=== PATIENT | male | born 1945 | race Caucasian/White ===

== ENCOUNTER 2019-06-10 13:06 | Outpatient (CLI) | payer MEDICARE, MEDICAID, SELFPAY ==
[2019-06-10 13:49] LABS: Eosinophils # 0.1 10^3/uL (0.0-0.8); Eosinophils % 5.9 %; Lymphocytes # 0.3 10^3/uL (0.8-4.8); Lymphocytes % 12.8 %; Mean Corpuscular HGB Conc 34.3 g/dL (30.0-36.0); Mean Corpuscular Hemoglobin 33.7 pg (28.0-34.0); Mean Corpuscular Volume 98.3 fL (80-94); Mean Platelet Volume 10.6 fL (7.4-10.4); Monocytes # 0.2 10^3/uL (0.2-0.9); Monocytes % 9.4 %; Neutrophils # 1.4 10^3/uL (1.8-7.7); Neutrophils % 70.4 %; Nucleated Red Blood Cells % 0 %; Platelet Count 65 10^3/cmm (130-400); Red Blood Count 1.75 10^6/uL (4.1-5.3); Red Cell Distribution Width 16.2 % (12.1-15.1)
[2019-06-10 14:23] LABS: Hematocrit 17.2 % (42.0-52.0); Hemoglobin 5.9 g/dL (11.7-16.6)
--- NOTE | 2019-06-10 17:14 | ONC CON_ITS ---
Dr. Clinton New Patient Note Patient: Juan J Charles Unit #: [id number]: [id number] Dicatated By: Kacie Clinton M.D.Date of Visit: Jun 10, 2019 Onc MED New Patient/Consult Referring Physician: Dr. José Miguel Louis History of Present Illness: Mr. Juan J Charles, is a 74-year-old gentleman acute promyelocytic leukemia diagnosed in 2009 status post chemotherapy, was in remission, being followed by primary care physician, as per patient his daughter patient was in his usual health until December 2018 when he was diagnosed with severe anemia, hemoglobin was around 7 g and he was given blood transfusion and that time nephrology took over his anemia management, since then patient has received multiple iron infusions and also being treated with and erythropoiesis stimulating agent also received multiple blood transfusions since then last one was in the mid May 2019 As per daughter, patient underwent EGD and colonoscopy in April 2019 which shows normal colonoscopy evaluation but peptic ulcer disease per EGD Patient has chronic systolic heart failure with pulmonary hypertension, is on Coumadin for history of MVR, Chronic renal disease due to hypertensive nephrosclerosis as well as chronic cardiorenal syndrome from chronic systolic heart failure Hypertension. Today patient is complaining of generalized weakness and fatigue, no melena or hematochezia, no jaundice, no hemoptysis or hematemesis, no petechiae or ecchymosis. No recent fever, no peripheral lymphadenopathy, no abdominal fullness, no nosebleed or gum bleed . Past Medical History: Mr. Charles's medical history consists of atrial fibrillation, chronic kidney disease (STAGE IV), chronic systolic heart failure, congestive heart failure, gastroesophageal reflux disease, gout, history of leukemia, hypertension, pancytopenia, and pulmonary hypertension. Past Surgical History: Mr. Charles's surgical/procedural history consists of cardiac defibrillator, hernia repair, mitral valve replacement, and tonsillectomy. Medications: Allopurinol 1 Tablet (of 100 mg) Oral daily, Amiodarone HCl 1 Tablet (of 100 mg) Oral daily, Bumex 1 Tablet (of 1 mg) Oral q 2 days, hydrALAZINE HCl 1 Tablet (of 25 mg) Oral daily, Metoprolol Tartrate 1 Tablet (of 25 mg) Oral b.i.d., Protonix 1 Tablet (of 20 mg) Tablet, enteric coated Oral b.i.d. Allergies: Codeine Sulfate, Gabapentin, levETIRAcetam, and predniSONE. Social History: Mr. Charles is and he is retired. Mr. Charles no longer smokes. He has no history of drinking. Family History: Mr. Charles's mother at age 93: colon cancer. Mr. Charles's father at age 53: stomach cancer. Mr. Charles has 1 sister who is : pancreatic cancer. Review Of Symptoms: Constitutional - Appetite is fair and weight has decreased. No fever, chills, hot flashes, or night sweats. Energy level is poor, ENMT - Positive for sinus congestion/drainage. No mouth sores. No sore throat or difficulty swallowing, Hematologic/Lymphatic - Positive for easy bruisng, frequent nosebleeds, Respiratory - Positive for shortness of breath. No cough. No pleuritic pain or hemoptysis, Cardiovascular - No angina pain. Occasional palpitations, Gastrointestinal - No nausea or vomiting. No heartburn or acid reflux. Flucuates between diarrhea and constipation. No blood in the stool or black stools, Genitourinary (M) - No dysuria or hematuria. No urinary frequency. No urgency or incontinence, Musculoskeletal - Positive for joint pain, Neurologic - No headache or dizziness. No numbness/paresthesias or other focal neurologic symptoms, Psychiatric - No anxiety or depression. Positive for insomnia. Vital Signs: Performed on Jun 10, 2019 14:38: 8, 23.27, 2.00 sq.m, 72.00 in, 100 %, 58 /min (LOW), 18 /min, 115/57 mm(hg), 97.3 F (LOW), and 171.6 lbs (HIGH). Performance Status: 2 - Ambulatory/capable of all self-care, unable to perform any work activities. Up and about more than 50% of waking hours. (ECOG) Physical Examination: ENMT - No oral exudates, ulcers, masses, thrush or mucositis. Oropharynx clear. Tongue normal, Respiratory - Lungs are clear to auscultation without rhonchi or wheezing, Cardiovascular - Regular rate and rhythm of heart, Abdomen - Non-tender, non-distended, Good bowel sounds. No guarding or rebound tenderness. No pulsatile masses, Extremities - 2+ edema bilaterally. Lab/Imaging: Most recent lab results are not available for this patient. Impression: Pancytopenia etiology unclear but could be due to APL relapse or considering his age, myelodysplasia or secondary AML due to chemotherapy in the past or aplastic anemia Status post multiple blood transfusions/iron infusions/erythropoiesis stimulating agent per nephrology History of APL diagnosed in 2009 status post chemotherapy, as per family patient achieved complete remission. History of MVR, on Coumadin History of chronic systolic heart failure History of chronic renal disease Plan: Discussed with patient regarding his labs white blood count 2 hemoglobin 5.9 hematocrit 17.2 platelets 65,000 absolute neutrophil count 1400 Clinically, patient is [id number] distress due to severe anemia, we will consider to units of packed RBCs, run each over 3 hours with Lasix 20 mg after first unit and watching for fluid overload. And also schedule him for bone marrow evaluation and consider flow cytometry/cytogenetics and FISH for MDS Patient will return to clinic 1 week after bone marrow procedure done for further discussion in the meantime we'll continue supportive care. Patient was advised in case he has any high-grade fever or gross bleeding he need to go to hospital immediately Signed By: Kacie Clinton M.D. <<Signature on File>>
== END 2019-06-10 13:07 | disposition home or self-care (01) ==
PROVIDERS: Family Provider Student in an Organized Health Care Education/Training Program; PCP Student in an Organized Health Care Education/Training Program; Referring Provider Internal Medicine; Visit Provider Internal Medicine Hematology & Oncology
DX: D61.818 Other pancytopenia (principal); N18.4 Chronic kidney disease, stage 4 (severe); D63.1 Anemia in chronic kidney disease; C92.41 Acute promyelocytic leukemia, in remission; I50.22 Chronic systolic (congestive) heart failure; Z79.01 Long term (current) use of anticoagulants
CPT/HCPCS: 85025; 99203

== ENCOUNTER 2019-07-04 09:31 | Day surgery (SDC) | payer MEDICARE, MEDICAID, SELFPAY ==
[2019-07-04 10:00] VITALS: BMI 23.0
[2019-07-04 11:07] LABS: INR 4.33 (0.8-1.2)
[2019-07-04 11:09] VITALS: BP 107/59; PULSE 51; RESP 18; TEMP 36.3; O2SAT 100
--- NOTE | 2019-07-04 11:17 | SUR.OPER ---
procedure cancelled by Dr. Clinton due to PT results.
[2019-07-04 11:39] LABS: Basophils % 1.3 %; Eosinophils # 0.1 10^3/uL (0.0-0.8); Eosinophils % 6.5 %; Lymphocytes # 0.2 10^3/uL (0.8-4.8); Mean Corpuscular HGB Conc 32.9 g/dL (30.0-36.0); Mean Corpuscular Hemoglobin 31.8 pg (28.0-34.0); Mean Corpuscular Volume 96.8 fL (80-94); Mean Platelet Volume 10.3 fL (7.4-10.4); Monocytes # 0.1 10^3/uL (0.2-0.9); Monocytes % 9.2 %; Neutrophils % 67.3 %; Nucleated Red Blood Cells % 0 %; Platelet Count 70 10^3/cmm (130-400); Red Blood Count 1.54 10^6/uL (4.1-5.3); Red Cell Distribution Width 18.2 % (12.1-15.1); White Blood Count 1.5 10^3/uL (4.0-10.0)
[2019-07-04 11:48] LABS: Hematocrit 14.9 % (42.0-52.0); Hemoglobin 4.9 g/dL (11.7-16.6)
--- NOTE | 2019-07-04 12:54 | SUR.PHASEII ---
CRITICAL LAB CRITICAL LAB WAS CALLED TO ME AT 1145 STATING HgB WAS 4.9, HCT 14.9. I CALLED DR OLSEN AND NOTIFIED HIM OF THE CRITICAL LAB, HE GAVE VERBAL TELEPHONE ORDERS TO ADMINISTER TWO UNITS OF PACKED RED BLOOD CELLS WITH TYLENOL AND BENEDRYL ADMINISTERED PRIOR AND LASIX BETWEEN UNITS, I THEN NOTIFIED THREAD SEPARATOR PAMELA HAYNES RN AND SHE STATED I NEEDED OUTPATIENT IN A BED OR ADMIT ORDERS FROM DR OLSEN. WHEN I CALLED DR OLSEN BACK TO TELL HIM WHAT THREAD SEPARATOR SAID HE STATED THAT HE CAN'T DO ADMIT ORDERS FROM OVER HERE AND TO SEND THE PATIENT TO ER AND LET THEM DEAL WITH IT. I THEN TOOK THE PATIENT TO ER VIA W/C, PATIENT WAS A&OX4, SATURATION 96% ON ROOM AIR
== END 2019-07-04 12:05 ==
LOC: OR 09:40
PROVIDERS: Family Provider Student in an Organized Health Care Education/Training Program; PCP Student in an Organized Health Care Education/Training Program; Visit Provider Internal Medicine Hematology & Oncology
PROC: (CPT 38221; principal; 2019-07-04 11:00)
DX: Z53.8 Procedure and treatment not carried out for other reasons (principal)
CPT/HCPCS: 36415; 85025; 85610

== ENCOUNTER 2019-07-04 12:20 | Inpatient (IN) | payer MEDICARE, MEDICAID, SELFPAY ==
[2019-07-04] VITALS (39 sets, daily range): BP systolic 91–128; BP diastolic 58–84; PULSE 0–88; RESP 0–22; TEMP 33.8–36.1; O2SAT 94–100; BMI 21.7
--- NOTE | 2019-07-04 12:22 | W.ED.GENADLT ---
HPI - General Adult General: Chief complaint: General Medical Stated complaint: Low Hemoglobin Time Seen by Provider: 07/04/19 12:21 Source: patient Mode of arrival: ambulatory Limitations: no limitations History of Present Illness: HPI narrative: Juan J is a 74-year-old male with a history of PML and he gets chronically anemic from the leukemia. He states he last had a transfusion 3 weeks ago. Patient had labs done today that showed a hemoglobin of 4.2. He states his been feeling generally weak. He denies any bloating specifically no blood in his stools. Patient sent here by his oncologist. Onset (ago): day(s) Relieving factors: none Exacerbating factors: none Associated symptoms: Deny chest pain, dyspnea, headache(s), nausea, rash or vomiting Review of Systems Const: Denies: fever, chills, body aches or change in appetite Eyes: Denies: blurry vision or eye discomfort ENMT: Denies: throat pain or dental pain Card: Denies: chest pain Resp: Denies: shortness of breath GI: Denies: abdominal pain, nausea, vomiting or diarrhea : Denies: painful urination Musc: Denies: neck pain or back pain Skin/Breast: Denies: rash Neuro: Denies: headache Psych: Denies: depression Julien/Lymph: Denies: easy bruising All/Imm: Denies: hives PFSH ED PFSH: Family History Mother Colon cancer Father FH: stomach cancer Sister FH: pancreatic cancer Social History Smoking and tobacco status: former smoker Physical Exam Const: COMMON NORMALS: oriented x3 GENERAL APPEARANCE: ill appearing HENMT: COMMON NORMALS: normocephalic and head/scalp atraumatic HEAD & SCALP: normocephalic and atraumatic Eye: COMMON NORMALS: PERRL and EOMs intact bilaterally PUPIL: Yes PERRL Neck/C-Spine: COMMON NORMALS: full ROM and supple Chest: COMMONS NORMALS: inspection of chest normal and palpation of chest normal Resp: COMMON NORMALS: normal respiratory effort, no retractions, no use of accessory muscles and clear to auscultation bilaterally AUSCULTATION: clear to auscultation bilaterally Cardio: COMMON NORMALS: regular rate, regular rhythm and no murmurs RATE: regular rate RHYTHM: regular rhythm GI: COMMON NORMALS: normal to inspection, nondistended, normoactive bowel sounds, soft to palpation, non-tender and no masses PALPATION: Yes soft Extremity: COMMON NORMALS: normal to inspection and full ROM Neuro: COMMON NORMALS: oriented x3, moves all extremities and no focal motor deficits Psych: COMMON NORMALS: mental status grossly normal, thought process normal and cooperative THOUGHT PROCESS: normal thought process Skin: COMMON NORMALS: no rashes or lesions noted and no wounds NARRATIVE SKIN EXAM: very pale GENERAL SKIN EXAM: no rashes or lesions noted Course Vital Signs: Vital signs: Vital Signs Pulse Rate 67 07/04/19 12:20 Respiratory Rate 16 07/04/19 13:10 Blood Pressure 105/72 07/04/19 12:35 Pulse Oximetry 100 07/04/19 13:10 MDM - General Adult MDM Narrative: Medical decision making narrative: Patient presents here with anemia that is chronic in nature likely from his leukemia. He has no signs of bleeding at this time. I spoke to hospitalist and will admit for transfusions. Patient has been stable while in the ER. Lab Data: Labs: Lab Results 07/04/19 07/04/19 07/04/19 Range/Units 12:43 12:43 12:43 WBC 1.5 L (4.0-10.0) 10^3/ uL RBC 1.57 L (4.1-5.3) 10^6/u L Hgb 5.0 L* (11.7-16.6) g/dL Hct 15.4 L* (42.0-52.0) % MCV 98.1 H (80-94) fL MCH 31.8 (28.0-34.0) pg MCHC 32.5 (30.0-36.0) g/dL RDW 18.5 H (12.1-15.1) % Plt Count 64 L (130-400) 10^3/c mm MPV 9.3 (7.4-10.4) fL Neut % (Auto) 68.1 % Lymph % (Auto) 18.0 % Reynolds % (Auto) 7.3 % Eos % (Auto) 5.3 % Baso % (Auto) 1.3 % Neut # (Auto) 1.0 L (1.8-7.7) 10^3/u L Lymph # (Auto) 0.3 L (0.8-4.8) 10^3/u L Reynolds # (Auto) 0.1 L (0.2-0.9) 10^3/u L Eos # (Auto) 0.1 (0.0-0.8) 10^3/u L Baso # (Auto) 0.0 (0.0-0.1) 10^3/u L Nucleated RBC % (a uto) 0 % Nucleated RBCs # 0.0 /100WBC PT 44.60 H (10.5-13.3) SECO NDS INR 4.64 H (0.8-1.2) Sodium 131 L (136-145) mmol/L Potassium 4.1 (3.5-5.1) mmol/L Chloride 99 (98-107) mmol/L Carbon Dioxide 20 L (22-29) mmol/L Anion Gap 16.1 (5-19) BUN 67 H (8-23) mg/dL Creatinine 4.4 H (0.7-1.2) mg/dL Glucose 94 (65-115) mg/dL Calculated Osmolal ity 271 L (285-295) mOsm/k g Calcium 9.2 (8.5-10.5) mg/dL Crossmatch 07/04/19 Range/Units 12:43 WBC (4.0-10.0) 10^3/ uL RBC (4.1-5.3) 10^6/u L Hgb (11.7-16.6) g/dL Hct (42.0-52.0) % MCV (80-94) fL MCH (28.0-34.0) pg MCHC (30.0-36.0) g/dL RDW (12.1-15.1) % Plt Count (130-400) 10^3/c mm MPV (7.4-10.4) fL Neut % (Auto) % Lymph % (Auto) % Reynolds % (Auto) % Eos % (Auto) % Baso % (Auto) % Neut # (Auto) (1.8-7.7) 10^3/u L Lymph # (Auto) (0.8-4.8) 10^3/u L Reynolds # (Auto) (0.2-0.9) 10^3/u L Eos # (Auto) (0.0-0.8) 10^3/u L Baso # (Auto) (0.0-0.1) 10^3/u L Nucleated RBC % (a uto) % Nucleated RBCs # /100WBC PT (10.5-13.3) SECO NDS INR (0.8-1.2) Sodium (136-145) mmol/L Potassium (3.5-5.1) mmol/L Chloride (98-107) mmol/L Carbon Dioxide (22-29) mmol/L Anion Gap (5-19) BUN (8-23) mg/dL Creatinine (0.7-1.2) mg/dL Glucose (65-115) mg/dL Calculated Osmolal ity (285-295) mOsm/k g Calcium (8.5-10.5) mg/dL Crossmatch See Detail Discharge Plan Discharge Patient Disposition: Admitted As Inpatient Clinical Impression: Anemia Qualifiers: Anemia type: unspecified type Qualified Code(s): D64.9 - Anemia, unspecified Condition: Stable Referrals: Gómez Perales [Primary Care Provider] - Coding Level of Care Code ED Drafter (Cad) Electrical for g Fwd Exam Comprehensive
[2019-07-04 12:55] LABS: Basophils % 1.3 %; Eosinophils # 0.1 10^3/uL (0.0-0.8); Eosinophils % 5.3 %; Lymphocytes # 0.3 10^3/uL (0.8-4.8); Mean Corpuscular HGB Conc 32.5 g/dL (30.0-36.0); Mean Corpuscular Hemoglobin 31.8 pg (28.0-34.0); Mean Corpuscular Volume 98.1 fL (80-94); Mean Platelet Volume 9.3 fL (7.4-10.4); Monocytes # 0.1 10^3/uL (0.2-0.9); Monocytes % 7.3 %; Neutrophils % 68.1 %; Nucleated Red Blood Cells % 0 %; Platelet Count 64 10^3/cmm (130-400); Red Blood Count 1.57 10^6/uL (4.1-5.3); Red Cell Distribution Width 18.5 % (12.1-15.1); White Blood Count 1.5 10^3/uL (4.0-10.0)
[2019-07-04 13:10] LABS: Anion Gap 16.1 (5-19); Blood Urea Nitrogen 67 mg/dL (8-23); Calcium 9.2 mg/dL (8.5-10.5); Carbon Dioxide 20 mmol/L (22-29); Chloride 99 mmol/L (98-107); Glucose 94 mg/dL (65-115); Osmolality Calculated 271 mOsm/kg (285-295); Potassium 4.1 mmol/L (3.5-5.1); Sodium 131 mmol/L (136-145)
[2019-07-04] MEDS: morphine 4 mg/mL SDV 1 mL IVP (13:10)
[2019-07-04 13:13] LABS: INR 4.64 (0.8-1.2)
[2019-07-04 13:16] LABS: Hematocrit 15.4 % (42.0-52.0)
--- NOTE | 2019-07-04 16:17 | P.HP_ITS ---
Providers/Chief Complaint Admitting Physician: Wilber Bojorquez MD Primary Care Provider: Gómez Perales Chief Complaint: Low Hemoglobin History of Present Illness Juan J Charles is a 74 year old gentleman with past medical history of acute PML diagnosed in 2009 status post chemotherapy was in remission and was being followed by primary care physician when in December 2018 he had severe anemia with a hemoglobin around 7 and back pain PML was diagnosed again. Since then he has had multiple iron and blood transfusion. His other past medical history are atrial fibrillation, chronic systolic heart failure with pulmonary hypertension, metallic mitral valve for which he is on Coumadin, CKD stage IV due to hypertensive nephrosclerosis as well as chronic cardiorenal syndrome, GERD, gout who presents to the ER today complaining of generalized weakness and lethargy. He denied of having any nausea, vomiting, diarrhea, black tarry bowel movements, dizziness, fall, cough, fever less than 2 months, flulike symptoms, chills, bleeding from anywhere, weakness in any of his limbs. In ER he was found to have a hemoglobin of 5 along with a creatinine of 4.4 and pancytopenia so hospital service was asked for admission. Patient states he has had a colonoscopy and EGD in 2019 which showed normal colonoscopy and gastritis and EGD. On evaluation patient is tired looking, lethargic lying on bed answering all questions appropriately, AO x3 not in respiratory distress, protecting his airway with his heart rate ranging from 45-48 with occasional VPCs and a blood pressure of 122/60 mmHg. Review of Systems Const: Denies: fever, chills, body aches, change in appetite, malaise, night sweats, diaphoresis, change in sleep pattern, daytime sleepiness or snoring Eyes: Denies: change in vision, blurry vision, photophobia, eye discomfort or eye discharge ENMT: Denies: throat pain, enlarged tonsils, hoarseness, mouth pain, oral sores/lesions, dry mouth, tinnitus, nasal congestion or post nasal drip Card: Denies: chest pain, palpitations, irregular heart rhythm, edema, swelling of feet/ankles, lightheadedness, syncope, pre-syncope, shortness of breath on exertion, shortness of breath when lying down, leg pain with exertion or bluish discoloration of hands/feet Resp: Denies: shortness of breath, productive cough, non-productive cough, wheezing, stridor, pain on inspiration, change in phlegm color, coughing up blood or chest congestion GI: Denies: abdominal pain, nausea, vomiting, vomiting blood, coffee grounds in vomit, difficulty swallowing, heartburn/indigestion, diarrhea, constipation, bloating, cramping, change in bowel habits, painful bowel movements, blood in stool or black tarry stool : Denies: flank pain, difficulty urinating, painful urination, urinary frequency, urinary urgency, urinary hesitancy, urinary dribbling, difficulty starting urination, change in urine stream, nighttime urination or blood in urine Musc: Denies: neck pain, back pain, extremity pain, joint pain, joint swelling, redness, joint stiffness or limited range of motion Neuro: Reports: weakness in extremities; Denies: headache, numbness in extremities, changes in sensation, lack of coordination, difficulty walking, frequent falls, dizziness, vertigo, confusion, slurred speech, difficulty communicating thoughts or seizure-like activity Psych: Denies: anxiety, depression, mood swings, panic attacks, hopelessness or irritability Endo: Denies: excessive urination, excessive thirst, tired all the time, cold intolerance, excessive sweating, flushing or heat intolerance Julien/Lymph: Denies: easy bruising or easy bleeding All/Imm: Denies: tongue swelling, facial swelling or acute wheezing Medications/Allergies Home Medications Medication Instructions Recorded Confirmed Last Taken Type oxycodone See Rx Instructions .ROUTE .COMPLEX 07/04/19 07/04/19 Unknown History Allergies Allergy/AdvReac Type Severity Reaction Status Date / Time codeine Allergy Unknown Verified 07/04/19 10:06 gabapentin Allergy Unknown Verified 07/04/19 10:06 levetiracetam Allergy Unknown Verified 07/04/19 10:06 prednisone Allergy Unknown Verified 07/04/19 10:06 PFSH Acute PFSH: Medical History (Updated 07/04/19 @ 16:45 by Wilber Bojorquez MD) Atrial fibrillation Cardiac defibrillator in place Cardiorenal syndrome Chronic renal disease Gout Hypertensive nephrosclerosis Leukemia Normal colonoscopy Pancytopenia Peptic ulcer Pulmonary hypertension Systolic heart failure Surgical History (Updated 07/04/19 @ 16:21 by Wilber Bojorquez MD) H/O hernia repair History of esophagogastroduodenoscopy (EGD) History of tonsillectomy S/P MVR (mitral valve repair) Family History Mother Colon cancer Father FH: stomach cancer Sister FH: pancreatic cancer Social History (Updated 07/04/19 @ 16:22 by Wilber Bojorquez MD) Smoking and tobacco status: former smoker Household members: children Housing: House Vitals/I&O/Wt Last Vital Signs Temp 96.9 F L 07/04/19 15:07 Pulse 47 L 07/04/19 15:15 Resp 7 L 07/04/19 15:15 BP 118/66 07/04/19 15:15 Pulse Ox 99 07/04/19 15:15 07/04/19 07/04/19 07/04/19 06:59 14:59 22:59 Intake Total 0 / 0 Balance 0 / 0 Weight last 48 hrs Weight 72.575 kg Physical Exam Narrative: EXAM NARRATIVE: General: No acute distress, AO x3, Tired looking, lethargic, severe pallor, dehydrated HEENT: PERRLA, pupils bilaterally equal and reactive Chest: Normal vesicular breath sounds, no added sounds, equal good air entry bilaterally CVS: S1-S2 regular,, bradycardia, MitraClip present over the mitral valve, pansystolic murmur at the apex, S3 gallop, no rubs Abdomen: Soft, nontender, no organomegaly, bowel sounds present Neuro: No focal deficits, no facial deformity, AO x3, power 5/5 in all limbs Data : 07/04/19 12:43 07/04/19 12:43 A&P Assessment and plan (1) Pancytopenia: Status: Acute (2) Anemia: Status: Acute Qualifiers: Anemia type: unspecified type Qualified Code(s): D64.9 - Anemia, unspecified (3) S/P MVR (mitral valve repair): Status: Acute (4) Systolic heart failure: Status: Acute (5) Chronic renal disease: Status: Acute (6) Atrial fibrillation: Status: Acute (7) Supratherapeutic INR: Status: Acute (8) Bradycardia: Status: Acute Additional A&P Information Severe anemia: Most likely baseline hemoglobin around 7. Secondary to PML along with anemia due to renal dysfunction. Cannot rule out slow GI bleed. 2 units transfusion PRBC. Protonix 40 mg IV twice daily. Check iron panel, vitamin B12, folate, ferritin. Check stool for occult blood. If positive will consult surgery for EGD and colonoscopy. As per the records patient had EGD and colonoscopy earlier in April which were both normal. CKD: We do not have a baseline creatinine for the patient. Last creatinine in the system is around one-point 8?2 but that was more than 5 years ago. Check urine lites, urine creatinine, CT abdomen pelvis without contrast to rule out obstructive uropathy, renal ultrasound. Patient is looking dehydrated right now we will hold off on Bumex for now. Metallic mitral valve/supratherapeutic INR: Given severe anemia will hold off on warfarin for now. Goal INR is going to be around 3. If patient continues to have anemia and INR comes around 3 will have to start patient on heparin drip. Because patient is not having any acute bleeding right now will not reverse the INR as that can cause that mitral valve. Bradycardia: We will hold off on home dose of metoprolol and amiodarone for now as patient is having significant bradycardia. No hyperkalemia on the blood work. Start him on dopamine at 10 mcg/min. We will keep pacer pads at the bedside. We will consult cardiology for possible transvenous pacer. Atrial fibrillation: As above. Check TSH. History of severe systolic dysfunction: No recent echo in the system. Patient on exam is severely dehydrated at present. We will hold off on further diuresis for now. Check echocardiogram. Cardiac diet. Supratherapeutic INR. CODE STATUS: Discussed in detail with the patient regarding the CODE STATUS he states for now he would like to be full code. Attestations Medical Necessity Statement*: Admit to ICU for more than 2 midnights for severe bradycardia, severe anemia, supratherapeutic INR. Time Spent in Patient Care: Greater than 35 minutes Coding Level of Care Code Acute Rubber Flap Tuber Machine Operator for Chg Fwd Diagnoses Pancytopenia D61.818 Anemia D64.9 Anemia type: unspecified type S/P MVR (mitral valve repair) Z98.890 Systolic heart failure I50.20 Chronic renal disease N18.9 Atrial fibrillation I48.91 Supratherapeutic INR R79.1 Bradycardia R00.1
[2019-07-04 16:24] LABS: NT Pro B Type Natriuretic Pept 2568 pg/mL (0-125)
--- NOTE | 2019-07-04 16:35 | CTR_ITS ---
PROCEDURE INFORMATION: Exam: CT Abdomen And Pelvis Without Contrast Exam date and time: 07/04/2019 5:00 PM Age: 74 years old Clinical indication: Abdominal pain; Generalized; Additional info: R/O urinary obstruction TECHNIQUE: Imaging protocol: Computed tomography of the abdomen and pelvis without contrast. Total DLP: 592.04 mGy-cm Radiation optimization: All CT scans at this facility use at least one of these dose optimization techniques: automated exposure control; mA and/or kV adjustment per patient size (includes targeted exams where dose is matched to clinical indication); or iterative reconstruction. COMPARISON: No relevant prior studies available. FINDINGS: Limitations: The absence of intravenous contrast lessens the sensitivity of this study for solid organ abnormalities. Lungs: There is some atelectasis at the lung bases. There is a small calcification at the left lung base consistent with old granulomatous disease. Heart: There is moderate cardiomegaly. There is calcification of the mitral valve. Liver: There is no focal abnormality within the liver. Gallbladder and bile ducts: Multiple calcified gallstones are present. Pancreas: Normal. No ductal dilation. Spleen: There is mild nonspecific splenomegaly. Adrenals: Normal. No mass. Kidneys and ureters: There is a 5 cm sized indeterminate cyst arising from the mid left kidney. This is not completely evaluated on this examination but this has some mural calcification of possible mural nodule. Recommend MR without and with contrast or CT without and with contrast. MR is preferred for masses under 1.5 cm. There are other smaller indeterminate renal masses, incompletely evaluated on this examination which may represent cysts. These can be evaluated along with the larger cyst. There are some small calcifications in the left kidney which may represent small nonobstructing stones. There is no evidence of hydronephrosis. There is no stone along the course of either ureter. Stomach and bowel: There is been partial colectomy. There is moderate nonspecific gaseous dilatation of the mid transverse colon of uncertain significance. There is no evidence of colitis/diverticulitis. There is no evidence of intestinal obstruction. Appendix: Not identified Intraperitoneal space: Unremarkable. No free air. No significant fluid collection. Vasculature: There is coronary artery calcification. The aorta demonstrates mild atherosclerotic calcification. Lymph nodes: Unremarkable. No enlarged lymph nodes. Bladder: Unremarkable as visualized. Reproductive: Unremarkable as visualized. Bones/joints: There is old healed fracture of the left inferior pubic ramus. The lumbar spine demonstrates moderate degenerative changes at multiple levels. Soft tissues: Unremarkable. CT/CT abdomen pelvis wo con [id number] IMPRESSION: 1. Old granulomatous disease 2. Cardiomegaly, coronary disease and calcified mitral valve 3. Cholelithiasis 4. Multiple indeterminate renal masses. Further evaluation with MRI or contrast-enhanced CT scan is suggested. 5. Moderate gaseous dilatation of the transverse colon. Radiation Dose CTDIVOL = (mGy): DLP = 592.04 (mGy-cm)
[2019-07-04 17:44] LABS: Potassium, Radom Urine 17 mmol/L; Urine Creatinine 69 mg/dL (39-259); Urine Random Chloride 54 mmol/L; Urine Random Sodium 71 mmol/L
[2019-07-04 17:45] LABS: Folate Level 10.1 ng/mL (4.5-32.2)
[2019-07-04 17:46] LABS: Ferritin 377 ng/mL (30-400); Iron 101 ug/dL (59-158); Percent Saturation 44.2 % (20-50); Total Iron Binding Capacity 228 mcg/dl; Unsaturated Iron Binding 127 ug/dL (112-347); Vitamin B12 1786 pg/mL (232-1245)
--- NOTE | 2019-07-04 18:36 | PC.NURSE ---
PATIENT CAME TO [facility] VIA STRETCHER WITH RETAIL MANAGER IN TRAINING ; PATIENT HAD BLOOD RUNNING AT 175ML/HR ; PATIENT HEART RATE FROM 33-40 ; DR NOTIFIED ; PATIENT BLADDER SCANNED WITH 200+ ML SHOWING ; URINE SAMPLE NEEDED BUT PATIENT WAS UNABLE TO URINATE SO STRAIGHT CATH WAS PERFORMED AND 700ML WAS REMOVED ; ORDERED PATIENT TO BE TRANSFERRED TO ICU D/T BRADYCARDIA ; REPORT CALLED ; PATIENT WAS TAKEN TO CT AND THEN TO ICU VIA STRETCHER WITH MONITOR ATTACHED
[2019-07-04] MEDS: pantoprazole 40 mg SDV IVP (18:53)
[2019-07-04] MEDS: DOPamine drip 400 MG/250 ML PREMIX 27.2 MG IV (18:54)
[2019-07-04] MEDS: sodium chloride 0.9% 100 ML (18:54)
[2019-07-04 19:00] LABS: Specific Gravity, Urine 1.005 (1.005-1.030); Urine Appearance Clear (CLEAR); Urine Color Yellow (Yellow); pH Urine 5 (5-7)
[2019-07-04 19:01] LABS: Bilirubin Urine Neg (NEGATIVE); Blood Urine Neg (Negative); Glucose Urine UA Norm (Normal); Ketones Urine Negative (Negative); Leukocyte Esterase Urine Negative (Negative); Nitrate Urine Negative (Negative); Protein Urine Neg (Negative); Urobilinogen Urine Norm (Negative)
[2019-07-04 19:03] LABS: Lactic Sepsis W/Reflex 0.9 mmol/L (0.5-2.2)
[2019-07-04 19:12] LABS: Anion Gap 18.1 (5-19); Blood Urea Nitrogen 77 mg/dL (8-23); Calcium 9.2 mg/dL (8.5-10.5); Carbon Dioxide 18 mmol/L (22-29); Chloride 100 mmol/L (98-107); Free T4 Free Thyroxine 0.81 ng/dL (0.82-1.77); Glucose 94 mg/dL (65-115); Osmolality Calculated 273 mOsm/kg (285-295); Potassium 4.1 mmol/L (3.5-5.1); Sodium 132 mmol/L (136-145); T3 Free 1.2 PG/ML (2.0-4.4)
[2019-07-04 19:13] LABS: Cortisol Random 8.62 mcg/dL (2.47-19.5)
[2019-07-04 19:30] LABS: Bacteria Urine TRACE; Squamous Epithelial Cell Urine 0-4 (0-5)
[2019-07-04 19:31] LABS: Add Urine Culture? No
[2019-07-04] MEDS: levothyroxine 100 mcg SDV 200 MCG IVP (20:37)
[2019-07-04] MEDS: vancomycin 1,000 MG in sodium chloride 0.9% 250 ML 250 MG IV (20:38)
[2019-07-04] MEDS: piperacillin-tazobactam 3.375 GM in sodium chloride 0.9% (plus) 50 ML IV (20:48)
[2019-07-05] VITALS (25 sets, daily range): BP systolic 89–131; BP diastolic 59–97; PULSE 47–88; RESP 2–20; TEMP 36.3–37; O2SAT 86–98; BMI 21.5
[2019-07-05 00:54] LABS: Hematocrit 25.9 % (42.0-52.0); Hemoglobin 8.7 g/dL (11.7-16.6)
[2019-07-05] MEDS: morphine IR 15 mg Tablet PO (01:14)
[2019-07-05 01:20] LABS: 25 Hydroxy Vitamin D > 100 ng/mL (30-100)
[2019-07-05 04:59] LABS: Hematocrit 24.3 % (42.0-52.0); Hemoglobin 8.2 g/dL (11.7-16.6); Lymphocytes # 0.2 10^3/uL (0.8-4.8); Lymphocytes % 4.8 %; Mean Corpuscular HGB Conc 33.7 g/dL (30.0-36.0); Mean Corpuscular Hemoglobin 30.1 pg (28.0-34.0); Mean Corpuscular Volume 89.3 fL (80-94); Mean Platelet Volume 9.4 fL (7.4-10.4); Monocytes % 0.6 %; Neutrophils # 3.1 10^3/uL (1.8-7.7); Neutrophils % 94.3 %; Nucleated Red Blood Cells % 0 %; Platelet Count 77 10^3/cmm (130-400); Red Blood Count 2.72 10^6/uL (4.1-5.3); Red Cell Distribution Width 22.4 % (12.1-15.1); White Blood Count 3.3 10^3/uL (4.0-10.0)
[2019-07-05 05:18] LABS: Alanine Aminotransferase 26 U/L (0-41); Albumin Level 3.6 g/dL (3.5-5.2); Alkaline Phosphatase 140 IU/L (40-130); Anion Gap 20.2 (5-19); Aspartate Amino Transferase 66 U/L (0-40); Blood Urea Nitrogen 63 mg/dL (8-23); Calcium 9.3 mg/dL (8.5-10.5); Carbon Dioxide 18 mmol/L (22-29); Chloride 98 mmol/L (98-107); Globulin 3.9 g/dL (1.3-4.6); Glucose 175 mg/dL (65-115); Osmolality Calculated 277 mOsm/kg (285-295); Potassium 4.2 mmol/L (3.5-5.1); Sodium 132 mmol/L (136-145); Total Bilirubin 0.7 mg/dL (0.15-1.2); Total Protein 7.5 g/dL (6.6-8.7)
[2019-07-05 05:54] LABS: Free T4 Free Thyroxine 0.95 ng/dL (0.82-1.77)
[2019-07-05 08:33] LABS: INR 3.34 (0.8-1.2)
[2019-07-05] MEDS: hydrocortisone 100 mg/2 mL SDV IVP (08:45)
[2019-07-05] MEDS: pantoprazole 40 mg SDV IVP ×2 (08:45→21:38)
[2019-07-05] MEDS: piperacillin-tazobactam 3.375 GM in sodium chloride 0.9% (plus) 50 ML IV ×2 (08:46→21:43)
[2019-07-05] MEDS: levothyroxine 100 mcg SDV IVP (08:59)
--- NOTE | 2019-07-05 08:59 | PM.PN ---
Subjective Subjective: Interval history: She denies any pain or discomfort. Currently undergoing ultrasound. Denies any shortness of breath or cough. Has not so far had a bowel movement. He is oriented to location, it takes him a while to remember the year. Vitals/I&O/Wt Last Vital Signs Temp 97.3 F L 07/05/19 00:00 Pulse 78 07/05/19 08:23 Resp 17 07/05/19 08:23 BP 100/67 07/05/19 07:00 Pulse Ox 97 07/05/19 08:23 07/04/19 07/05/19 07/05/19 22:59 06:59 14:59 Intake Total 700 / 700 215.92 / 915.92 84.08 / 84.08 Output Total 700 / 700 1500 / 2200 Balance 0 / 0 -1284.08 / -1284.08 84.08 / 84.08 Weight last 48 hrs Weight 72.121 kg Weight 72.575 kg Physical Exam Const: COMMON NORMALS: no apparent distress GENERAL APPEARANCE: disheveled HENMT: COMMON NORMALS: oropharynx normal Neck/C-Spine: COMMON NORMALS: no JVD Resp: COMMON NORMALS: normal respiratory effort and clear to auscultation bilaterally AUSCULTATION: clear to auscultation bilaterally Cardio: COMMON NORMALS: no JVD, regular rhythm, S1 normal heart sound, S2 normal heart sound and no murmurs RHYTHM: regular rhythm HEART SOUNDS: S1 normal and S2 normal GI: COMMON NORMALS: normal to inspection, nondistended, normoactive bowel sounds, soft to palpation and non-tender PALPATION: Yes soft Extremity: COMMON NORMALS: no joint enlargement and no pedal edema OTHER: Chronic venous stasis dermatitis. Neuro: COMMON NORMALS: moves all extremities Skin: COMMON NORMALS: no rashes or lesions noted GENERAL SKIN EXAM: no rashes or lesions noted Data : 07/05/19 04:45 07/05/19 04:45 Micro: Microbiology 07/04/19 18:27 Blood Culture - Preliminary Blood SPECIMEN COLLECTED 07/04/19 18:15 Blood Culture - Preliminary Blood SPECIMEN COLLECTED A&P Assessment and plan (1) Pancytopenia: Better today. Severe neutropenia improved. Status: Acute (2) Anemia: Blood count appears stable, currently around 8.5. Recent hemoglobin values. 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 History of PML as well as renal dysfunction. He is not iron deficient. Status: Acute Qualifiers: Anemia type: unspecified type Qualified Code(s): D64.9 - Anemia, unspecified (3) S/P MVR (mitral valve repair): INR decreased down to 3.34. At this time will restart at lower dose warfarin 2 mg, monitor hemoglobin and INR. Status: Acute (4) Systolic heart failure: Currently does not appear fluid overloaded. He is awake and alert. Will restart cardiac diet. Monitor volume status. Status: Acute (5) Chronic renal disease: Creatinine with very mild improvement. Current baseline is not known. Suspected chronic kidney disease. Pending results of renal ultrasound. Status: Acute (6) Atrial fibrillation: Rates currently controlled. Status: Acute (7) Supratherapeutic INR: Decrease in therapeutic range. Resume warfarin. Monitor hemoglobin. Status: Acute (8) Bradycardia: Bradycardia improved. Continue thyroid hormone. Status: Acute Additional A&P Information Concern for PNA: on imaging. Currently empirically on Zosyn and vancomycin. Denies cough, shortness of breath, does have atelectasis. Will request for incentive spirometry. At this time suspicion for pneumonia is lower. Resolving neutropenia. For now continue antibiotic. Monitor condition. History of severe systolic dysfunction: No recent echo in the system. Patient on exam is severely dehydrated at present. We will hold off on further diuresis for now. Check echocardiogram. Cardiac diet. Supratherapeutic INR. CODE STATUS: Discussed in detail with the patient regarding the CODE STATUS he states for now he would like to be full code. Attestations Medical Necessity Statement*: Continue admission for assessment management of severe hypothyroidism, improving myxedema coma, severe anemia in the setting of need for chronic anticoagulation status post mechanical heart valve. Coding Level of Care Code Acute Surgical Garment Assembly Supervisor for Chg Fwd Diagnoses Pancytopenia D61.818 Anemia D64.9 Anemia type: unspecified type S/P MVR (mitral valve repair) Z98.890 Systolic heart failure I50.20 Chronic renal disease N18.9 Atrial fibrillation I48.91 Supratherapeutic INR R79.1 Bradycardia R00.1
--- NOTE | 2019-07-05 10:34 | P.PN_ITS ---
Subjective Subjective: Interval history: Vitals/I&O/Wt Last Vital Signs Temp 98.6 F 07/05/19 09:30 Pulse 88 07/05/19 10:00 Resp 16 07/05/19 10:00 BP 103/72 07/05/19 10:00 Pulse Ox 98 07/05/19 09:30 07/04/19 07/05/19 07/05/19 22:59 06:59 14:59 Intake Total 700 / 700 215.92 / 915.92 84.08 / 84.08 Output Total 700 / 700 1500 / 2200 Balance 0 / 0 -1284.08 / -1284.08 84.08 / 84.08 Weight last 48 hrs Weight 72.121 kg Weight 72.575 kg Data : 07/05/19 04:45 07/05/19 04:45 Micro: Microbiology 07/04/19 18:27 Blood Culture - Preliminary Blood SPECIMEN COLLECTED 07/04/19 18:15 Blood Culture - Preliminary Blood SPECIMEN COLLECTED Coding Level of Care Code Acute Certified Professional Controller for Daylin Rob
--- NOTE | 2019-07-05 12:38 | PC.NURSE ---
Report faxed to [facility]. Further verbal report given to SCAR Kasper.
--- NOTE | 2019-07-05 14:23 | USCV_ITS ---
Juan J Charles Age: 74 Gender: M : 1945 Exam Date: 07/05/2019 08:39 Ordering Phys: Wilber Bojorquez MD Technologist: Krzysztof Nickerson [place] [facility] [place]: MV PROS EF BP: 106 / 71 HR: 77 Rhythm: Sinus Technical Quality: Fair MEASUREMENTS (Male / Female) Normal Values 2D ECHO LV Diastolic Diameter PLAX 4.1 cm 4.2 - 5.9 / 3.9 - 5.3 cm LV Systolic Diameter PLAX 2.8 cm IVS Diastolic Thickness 1.4 cm 0.6 - 1.0 / 0.6 - 0.9 cm IVS Systolic Thickness 1.9 cm LVPW Diastolic Thickness 1.1 cm 0.6 - 1.0 / 0.6 - 0.9 cm LVPW Systolic Thickness 1.4 cm LVOT Diameter 2.0 cm LV Ejection Fraction 2D Teich 58.9 % LV Ejection Fraction MOD 2C 44.1 % LV Ejection Fraction 2C AL 43.8 % LA Diameter 6.7 cm LA Width 6.7 cm LA Height 8.3 cm RA Width 5.1 cm RA Height 7.2 cm M-MODE LV Diastolic Diameter MM 5.8 cm 4.2 - 5.9 / 3.9 - 5.3 cm LV Systolic Diameter MM 4.0 cm LV Ejection Fraction MM Teich 58.4 % IVS Diastolic Thickness MM 0.7 cm 0.6 - 1.0 / 0.6 - 0.9 cm IVS Systolic Thickness MM 1.5 cm LVPW Diastolic Thickness MM 1.1 cm 0.6 - 1.0 / 0.6 - 0.9 cm LVPW Systolic Thickness MM 1.7 cm RV Diastolic Diameter MM 1.6 cm Aortic Annulus Diameter 4.3 cm LA Ao Ratio MM 1.6 MV E Point Septal Separation 3.0 cm DOPPLER AV Peak Velocity 229.0 cm/s LVOT Peak Velocity 68.0 cm/s AV Area Cont Eq vti 0.8 cm squared AV Area Cont Eq pk 1.0 cm squared MV Area PHT 2.6 cm squared Mitral E to A Ratio 2.4 MV E' Velocity 128.0 cm/s TR Peak Velocity 314.0 cm/s TR Peak Gradient 39.4 mmHg TV Peak E Velocity 94.0 cm/s Right Atrial Pressure 3.0 mmHg Pulmonary Artery Systolic Pressu 42.4 mmHg FINDINGS Left Ventricle Normal left ventricular cavity size. Moderately decreased left ventricular systolic function. Global left ventricular hypokinesis. Left ventricular ejection fraction is estimated at 40 %. Please note that due to [id number] radiation and foreshortening of left ventricle accurately ejection fraction cannot be assessed. Please also note in the presence of A. fib cannot assess diastolic function Right Ventricle The right ventricle is normal in size and function. Moderate pulmonary hypertension, RVSP 42.4 mmHg. Right Atrium Moderately increased right atrial size. Left Atrium Moderately increased left atrial size. Mitral Valve There appeared to be mitral prosthetic valve sitting in normal position without significant valvular or paravalvular leak. Aortic Valve Severe aortic valve calcification. Severe aortic valve stenosis, mean gradient 9.6 mmHg, ENMANUEL 0.78 cm squared. Cannot rule out pseudo- aortic stenosis. Further exploration with dobutamine stress echo as an outpatient advised Tricuspid Valve Moderate tricuspid valve regurgitation. Pulmonic Valve Structurally normal pulmonic valve without significant stenosis. There is no pulmonic regurgitation. Pericardium Normal pericardium without effusion. Aorta Normal ascending aorta dimension. CONCLUSIONS 1-Normal left ventricular cavity size. Moderately decreased left ventricular systolic function. Global left ventricular hypokinesis. Left ventricular ejection fraction is estimated at 40 %. Please note that due to [id number] radiation and foreshortening of left ventricle accurately ejection fraction cannot be assessed. Please also note in the presence of A. fib cannot assess diastolic function. 2-Moderate biatrial enlargement 3-There appeared to be mitral prosthetic valve sitting in normal position without significant valvular or paravalvular leak. 4-Severe aortic valve calcification. Severe aortic valve stenosis, mean gradient 9.6 mmHg, ENMANUEL 0.78 cm squared. Cannot rule out pseudo-aortic stenosis. Further exploration with dobutamine stress echo as an outpatient advised. 5-The right ventricle is normal in size and function. Moderate pulmonary hypertension, RVSP 42.4 mmHg. 6-There is no pericardial effusion. 7-When compared to the prior echocardiogram dated 05/27/2014, there appeared to be improvement in the left ventricle ejection fraction from severely depressed 20% to 40% now. There appeared to be deterioation in aortic stenosis from mild to severe now. Venkat Pritchett MD (Electronically Signed) Final Date: 05 July 2019 13:05 S
--- NOTE | 2019-07-05 14:23 | US_ITS ---
WS: [id number] RENAL ULTRASOUND HISTORY: kaykay COMPARISON: CT abdomen 07/04/2019 TECHNIQUE: 2-D and color Doppler imaging of the kidney submitted. Right kidney: 10.9 cm x 5.4 cm x 5.7 cm. Normal size kidney. Mild increased echogenicity throughout the kidney. No obstruction. Exophytic ander ical cyst from the upper pole measures 1.3 cm in diameter. Left kidney: 10.9 cm x 5.8 cm x 5.5 cm. LEFT kidney is very difficult to visualize due to atrophy and increased echogenicity. Large cyst from the mid kidney measures 4.0 x 3.5 x 4.1 cm. Not a simple cyst but there is through transmission. Aorta: Not visualized. Urinary Bladder: Marked distention of the urinary bladder extends over a length of 12.8 cm. Cholelithiasis. US/US renal BI* [id number] IMPRESSION: 1. Moderate bilateral chronic bilateral renal disease without obstruction. Mor e significant chronic medical renal disease LEFT kidney. 2. Mildly complex LEFT renal cyst and a smaller RIGHT simple renal cyst. 3. Cholelithiasis.
[2019-07-05] MEDS: warfarin 2 mg Tablet PO (16:56)
--- NOTE | 2019-07-05 19:26 | US_ITS ---
WS: [id number] THYROID ULTRASOUND HISTORY: r/o thyroid fibrosis COMPARISON: None available. Right lobe: 4.5 cm x 2.2 cm x 2.6 cm. Volume: 13.6 cm3. Enlarged very abnormal, heterogeneous RIGHT thyroid. Coarsened echotexture with a few scattered punct ate calcifications. No discrete mass. Marked increased vascularity. Left lobe: 2.9 cm x 1.9 cm x 2.4 cm. Volume: 6.8 cm3. Mildly enlarged LEFT thyroid with coarsened echotexture. Tiny punctate calcifications. Isthmus: 0.7 cm. Abnormal and heterogeneous. US/US thyroid [id number] IMPRESSION: 1. Abnormal thyroid. Diffusely abnormal thyroid gland with heterogeneity. No d iscrete nodule identified. 2. Increased vascularity. Consider acute thyroiditis.
[2019-07-05] MEDS: hydrocortisone 100 mg/2 mL SDV 50 MG IVP (21:38)
[2019-07-06] VITALS (13 sets, daily range): BP systolic 88–116; BP diastolic 40–72; PULSE 47–64; RESP 16–19; TEMP 36.3–36.6; O2SAT 95–98
[2019-07-06] MEDS: HYDROcodone-acetaminophen 5-325 mg Tablet 2 TAB PO (03:23)
[2019-07-06] MEDS: lanolin oint 7 gm 1 APPLIC TOPICAL (03:40)
[2019-07-06 05:55] LABS: Lymphocytes # 0.2 10^3/uL (0.8-4.8); Lymphocytes % 5.6 %; Mean Corpuscular HGB Conc 33.8 g/dL (30.0-36.0); Mean Corpuscular Hemoglobin 30.8 pg (28.0-34.0); Mean Corpuscular Volume 91.1 fL (80-94); Mean Platelet Volume 9.8 fL (7.4-10.4); Monocytes # 0.1 10^3/uL (0.2-0.9); Monocytes % 3.2 %; Neutrophils # 3.1 10^3/uL (1.8-7.7); Neutrophils % 90.6 %; Nucleated Red Blood Cells % 0 %; Platelet Count 62 10^3/cmm (130-400); Red Blood Count 2.14 10^6/uL (4.1-5.3); Red Cell Distribution Width 22.3 % (12.1-15.1); White Blood Count 3.4 10^3/uL (4.0-10.0)
[2019-07-06 06:14] LABS: Alanine Aminotransferase 55 U/L (0-41); Alkaline Phosphatase 113 IU/L (40-130); Anion Gap 17.2 (5-19); Aspartate Amino Transferase 119 U/L (0-40); Blood Urea Nitrogen 65 mg/dL (8-23); Carbon Dioxide 19 mmol/L (22-29); Chloride 101 mmol/L (98-107); Globulin 3.4 g/dL (1.3-4.6); Glucose 115 mg/dL (65-115); Osmolality Calculated 276 mOsm/kg (285-295); Potassium 4.2 mmol/L (3.5-5.1); Sodium 133 mmol/L (136-145); Total Bilirubin 0.4 mg/dL (0.15-1.2); Total Protein 6.4 g/dL (6.6-8.7)
[2019-07-06 06:20] LABS: Hematocrit 19.5 % (42.0-52.0); Hemoglobin 6.6 g/dL (11.7-16.6)
--- NOTE | 2019-07-06 06:35 | PC.NURSE ---
CRITICAL H/H Critical Hmg 6.6/Hct 19.[address] Henning this am. Is ordering one unit of PRBC's for transfusion.
[2019-07-06 06:42] LABS: Free T4 Free Thyroxine 0.58 ng/dL (0.82-1.77)
[2019-07-06] MEDS: sodium chloride 0.9% 100 ML 10 ML (10:01)
[2019-07-06] MEDS: pantoprazole 40 mg SDV IVP ×2 (10:02→20:15)
[2019-07-06] MEDS: levoFLOXacin 750 mg Tablet PO (10:02)
[2019-07-06] MEDS: levothyroxine 25 mcg Tablet PO (10:02)
[2019-07-06] MEDS: hydrocortisone 100 mg/2 mL SDV 50 MG IVP ×2 (10:02→17:36)
[2019-07-06 10:10] LABS: Lactate Dehydrogenase 316 U/L (135-225)
[2019-07-06 10:12] LABS: INR 4.64 (0.8-1.2)
--- NOTE | 2019-07-06 13:50 | PC.NURSE ---
Bladder scan show >500 patient attempting to urinate at this time per urinal. will monitor.
--- NOTE | 2019-07-06 14:07 | PM.PN ---
Subjective Subjective: Interval history: He states he is doing all right . Is agreeable to stay for assessment management of his anemia and hypothyroidism. Remembers he is in the hospital, but thinks is in [place]. Again takes him a while to remember the year, as he stopped short stay in 1999. Overnight bradycardic. Soft blood pressure. This morning slightly more confused. Later today found to have some urine retention. Vitals/I&O/Wt Last Vital Signs Temp 97.8 F 07/06/19 11:05 Pulse 64 07/06/19 10:28 Resp 17 07/06/19 11:05 BP 98/54 07/06/19 11:05 Pulse Ox 97 07/06/19 11:05 07/05/19 07/06/19 07/06/19 22:59 06:59 14:59 Intake Total 240 / 597.08 300 / 897.08 2049 Output Total 500 / 500 250 / 750 Balance -260 / 97.08 50 / 147.08 2049 Weight last 48 hrs Weight 72.348 kg Weight 72.121 kg Physical Exam Const: COMMON NORMALS: no apparent distress GENERAL APPEARANCE: disheveled OTHER: Morning awake, alert, slow responses HENMT: COMMON NORMALS: oropharynx normal Neck/C-Spine: COMMON NORMALS: no JVD Resp: COMMON NORMALS: normal respiratory effort and clear to auscultation bilaterally AUSCULTATION: clear to auscultation bilaterally Cardio: COMMON NORMALS: no JVD, regular rhythm, S1 normal heart sound, S2 normal heart sound and no murmurs RHYTHM: regular rhythm HEART SOUNDS: S1 normal and S2 normal GI: COMMON NORMALS: normal to inspection, nondistended, normoactive bowel sounds, soft to palpation and non-tender PALPATION: Yes soft Extremity: COMMON NORMALS: no joint enlargement and no pedal edema Neuro: COMMON NORMALS: moves all extremities Skin: COMMON NORMALS: no rashes or lesions noted GENERAL SKIN EXAM: no rashes or lesions noted Data : 07/06/19 05:47 07/06/19 05:47 Micro: Microbiology 07/04/19 17:20 Urine Culture - Preliminary Urine Catheterized 07/04/19 18:27 Blood Culture - Preliminary Blood NEGATIVE TO DATE 07/04/19 18:15 Blood Culture - Preliminary Blood NEGATIVE TO DATE 07/05/19 04:30 MRSA Culture - Final Nose A&P Assessment and plan (1) Myxedema coma: This had improved. Attempt to transition him to oral medication starting yesterday, however, again with bradycardia, soft blood pressure, slowed responses, today slightly less responsive. Worse in the afternoon. Already received 25 mcg levothyroxine. Will give 50mcg IV x1. Increase PO dose to 50mcg. Increase hydrocortisone dose to 50 q8h due to soft BP, hyponatremia with normal potassium, suspected concomitant adrenal insufficiency. Status: Acute (2) Pancytopenia: Better, although again anemic. Severe neutropenia improved. Peripheral smear pending. Status: Acute (3) Anemia: Peripheral smear ordered. Again anemic today, hemoglobin down to 6.6. Requested again 1 unit. Receive transfusion. No outward bleeding. So far no bowel movement. Pending Hemoccult. No hematuria noted. It is not clear how he may be losing blood. Folic acid, B12 normal. No iron deficiency. Does have severe hypothyroidism likely contributing. Appears to perhaps also have some low-grade hemolysis, perhaps due to mechanical valve with slightly elevated LDH, slightly low haptoglobin. 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 History of PML as well as renal dysfunction. He is not iron deficient. Was supposed to undergo bone marrow biopsy prior to admission. Status: Acute Qualifiers: Anemia type: unspecified type Qualified Code(s): D64.9 - Anemia, unspecified (4) S/P MVR (mitral valve repair): INR again up today. Hold warfarin. Monitor hemoglobin and INR. Status: Acute (5) Systolic heart failure: Currently does not appear fluid overloaded. Cardiac diet. Monitor volume status. Status: Acute (6) Chronic renal disease: Creatinine fluctuating. With chronic kidney disease stage IV per discussion with his daughter. Renal masses noted on CT, cysts on ultrasonography. Complex cyst on the left. Consider additional dilation by MRI on nonemergent basis. Status: Acute (7) Atrial fibrillation: Rates currently controlled. Status: Acute (8) Supratherapeutic INR: Decrease in therapeutic range. Resume warfarin. Monitor hemoglobin. Status: Acute (9) Bradycardia: Bradycardia again in the 40s-50s. Continue optimization of levothyroxine therapy. So far has not received T3 with concern for triggering arrhythmia. Status: Acute (10) Renal cysts, acquired, bilateral: Reported as masses on CT. With recommendation for additional assessment with MRI. On ultrasonography mildly complex left cyst and a smaller right simple renal cyst. Status: Acute Additional A&P Information Cholelithiasis Urinary retention: This afternoon noted to have over 500 mL on bladder scan with trying to urinate. Place Lane catheter. Attestations Medical Necessity Statement*: Continue admission for the management of anemia, severe hypothyroidism. Coding Level of Care Code Acute Veterans Services Specialist for Chg Fwd Diagnoses Myxedema coma E03.5 Pancytopenia D61.818 Anemia D64.9 Anemia type: unspecified type S/P MVR (mitral valve repair) Z98.890 Systolic heart failure I50.20 Chronic renal disease N18.9 Atrial fibrillation I48.91 Supratherapeutic INR R79.1 Bradycardia R00.1 Renal cysts, acquired, bilateral N28.1
[2019-07-06] MEDS: levothyroxine 100 mcg SDV 50 MCG IVP (14:54)
--- NOTE | 2019-07-06 16:02 | PC.NURSE ---
Patient standing at bedside, staff responded to bed alarm. Pulling at carballo cath stating he was not given enough time to urinate. This nurse restated to patient as in prior conversations that he had not urinated throughout this shift and was unable to do so. States he would have been able to urinate if he had been allowed to stand alone at bedside, reviewed fall precautions which patient did not state understanding. Bed alarm placed on middle sensitivity. States he will carballo cath in place. Bed rails up x3. Will monitor closely.
[2019-07-06 16:28] LABS: Hemoglobin 7.6 g/dL (11.7-16.6)
[2019-07-06 16:42] LABS: Creatine Phosphokinase 170 U/L (39-308)
[2019-07-06 17:39] LABS: LAB Peripheral Smear Sent for Review
[2019-07-07] VITALS (8 sets, daily range): BP systolic 109–122; BP diastolic 64–74; PULSE 50–89; RESP 16–18; TEMP 36.4–36.8; O2SAT 95–98
[2019-07-07] MEDS: hydrocortisone 100 mg/2 mL SDV 50 MG IVP ×2 (02:18→09:26)
[2019-07-07 06:00] LABS: Hematocrit 23.3 % (42.0-52.0); Hemoglobin 7.6 g/dL (11.7-16.6); Lymphocytes # 0.2 10^3/uL (0.8-4.8); Lymphocytes % 4.7 %; Mean Corpuscular HGB Conc 32.6 g/dL (30.0-36.0); Mean Corpuscular Hemoglobin 29.2 pg (28.0-34.0); Mean Corpuscular Volume 89.6 fL (80-94); Mean Platelet Volume 9.5 fL (7.4-10.4); Monocytes # 0.1 10^3/uL (0.2-0.9); Monocytes % 2.5 %; Neutrophils # 3.4 10^3/uL (1.8-7.7); Neutrophils % 92.3 %; Nucleated Red Blood Cells % 0 %; Platelet Count 73 10^3/cmm (130-400); Red Cell Distribution Width 20.8 % (12.1-15.1); White Blood Count 3.7 10^3/uL (4.0-10.0)
[2019-07-07 06:06] LABS: INR 3.51 (0.8-1.2)
[2019-07-07 06:12] LABS: Alanine Aminotransferase 52 U/L (0-41); Albumin Level 3.2 g/dL (3.5-5.2); Alkaline Phosphatase 125 IU/L (40-130); Anion Gap 16.4 (5-19); Aspartate Amino Transferase 92 U/L (0-40); Blood Urea Nitrogen 75 mg/dL (8-23); Calcium 9.1 mg/dL (8.5-10.5); Carbon Dioxide 19 mmol/L (22-29); Chloride 103 mmol/L (98-107); Globulin 3.8 g/dL (1.3-4.6); Glucose 111 mg/dL (65-115); Osmolality Calculated 278 mOsm/kg (285-295); Potassium 4.4 mmol/L (3.5-5.1); Sodium 134 mmol/L (136-145); Total Bilirubin 0.4 mg/dL (0.15-1.2)
[2019-07-07 06:45] LABS: Free T4 Free Thyroxine 0.59 ng/dL (0.82-1.77)
[2019-07-07] MEDS: pantoprazole 40 mg SDV IVP ×2 (08:13→20:56)
[2019-07-07] MEDS: levothyroxine 50 mcg Tablet PO (08:13)
--- NOTE | 2019-07-07 09:04 | PC.SOCIAL ---
IMM Update Pg 2 of IMM verbally discussed by phone with patient's daughter who verbalized understanding. Copy in chart updated.
--- NOTE | 2019-07-07 13:36 | PM.PN ---
Subjective Subjective: Interval history: Today he says he is doing better. He is working on his lunch. Prescription with one-to-one sitter he has been well, without any confusion, agitation. He is looking forward to going home soon. Expressed that he would like to have Lane catheter taken out, however, agrees to keep in due to urinary retention, and does endorse that has been having some issues with urinary stream for some time. Vitals/I&O/Wt Last Vital Signs Temp 98.3 F 07/07/19 11:38 Pulse 76 07/07/19 11:38 Resp 16 07/07/19 11:38 BP 114/64 07/07/19 11:38 Pulse Ox 95 07/07/19 11:38 07/06/19 07/07/19 07/07/19 22:59 06:59 14:59 Intake Total 360 / 2410 720 / 720 Output Total 525 / 525 450 / 975 Balance -165 / 1885 -450 / 1435 720 / 720 Weight last 48 hrs Weight 71.668 kg Weight 72.348 kg Physical Exam Const: COMMON NORMALS: no apparent distress GENERAL APPEARANCE: disheveled OTHER: Today appears more energetic, alert. Slow responses HENMT: COMMON NORMALS: oropharynx normal Neck/C-Spine: COMMON NORMALS: no JVD Resp: COMMON NORMALS: normal respiratory effort and clear to auscultation bilaterally AUSCULTATION: clear to auscultation bilaterally Cardio: COMMON NORMALS: no JVD, regular rhythm, S1 normal heart sound, S2 normal heart sound and no murmurs RHYTHM: regular rhythm HEART SOUNDS: S1 normal and S2 normal GI: COMMON NORMALS: normal to inspection, nondistended, normoactive bowel sounds, soft to palpation and non-tender PALPATION: Yes soft Extremity: COMMON NORMALS: no joint enlargement and no pedal edema Neuro: COMMON NORMALS: moves all extremities Skin: COMMON NORMALS: no rashes or lesions noted GENERAL SKIN EXAM: no rashes or lesions noted Urinary Catheter Management^: Lane: Cath Placed During This Visit: yes Reason for Continuing Indwelling Catheter: Acute Urinary Retention or Obstruction Urinary Catheter Date of Insertion: 07/06/19 Urinary Catheter Time of Insertion: 14:18 Data : 07/07/19 05:30 07/07/19 05:30 Micro: Microbiology 07/04/19 17:20 Urine Culture - Final Urine Catheterized A&P Assessment and plan (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 Again with some bradycardia this morning. This does not appear to be symptomatic. He has today received extra dose of IV levothyroxine. Will increase levothyroxine dose to 75 mcg daily, and continue at this dose if no further issues until can be reassessed in primary care office. Blood pressures have improved. We will try to transition him to oral hydrocortisone to continue taper. Status: Acute (2) Pancytopenia: Better, although again anemic. Severe neutropenia improved. Peripheral smear pending. We will treat hypothyroidism, and if no improvement, may need to proceed with bone marrow aspiration. Status: Acute (3) Anemia: Peripheral smear ordered. Responded well to PRBC transfusion. Recheck hemoglobin in the morning. So far no noted GI bleeding. Has not had a bowel movement to provide a stool sample. Not suspecting brisk GI bleeding. Pending Hemoccult. No hematuria noted. It is not clear how he may be losing blood. Folic acid, B12 normal. No iron deficiency. Does have severe hypothyroidism likely contributing. Appears to perhaps also have some low-grade hemolysis, perhaps due to mechanical valve with slightly elevated LDH, slightly low haptoglobin. 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 History of PML as well as renal dysfunction. He is not iron deficient. Was supposed to undergo bone marrow biopsy prior to admission. Status: Acute Qualifiers: Anemia type: unspecified type Qualified Code(s): D64.9 - Anemia, unspecified (4) S/P MVR (mitral valve repair): INR therapeutic. Will give 1 mg warfarin today since with 2 mg still became supratherapeutic. Status: Acute (5) Systolic heart failure: Currently does not appear fluid overloaded. Cardiac diet. Monitor volume status. Status: Acute (6) Chronic renal disease: Creatinine fluctuating. With chronic kidney disease stage IV per discussion with his daughter. Renal masses noted on CT, cysts on ultrasonography. Complex cyst on the left. Consider additional dilation by MRI on nonemergent basis. Status: Acute (7) Atrial fibrillation: Rates currently controlled. Status: Acute (8) Supratherapeutic INR: Decrease in therapeutic range. Resume warfarin. Monitor hemoglobin. Status: Acute (9) Bradycardia: Bradycardia again in the 40s-50s. Continue optimization of levothyroxine therapy. So far has not received T3 with concern for triggering arrhythmia. Status: Acute (10) Renal cysts, acquired, bilateral: Reported as masses on CT. With recommendation for additional assessment with MRI. On ultrasonography mildly complex left cyst and a smaller right simple renal cyst. Status: Acute (11) Thyroiditis: Hypothyroidism appears to be following thyroiditis. Cause not entirely clear, however, suspect may be related to amiodarone. No abscess or other evidence of bacterial thyroiditis noted. At this time biopsy could not be considered given need for anticoagulation higher vascularity. Perhaps at some point once inflammation subsides entirely, perhaps a biopsy could be considered if still needed. Status: Acute Additional A&P Information Cholelithiasis Urinary retention: With suspected BPH as he reports urine stream difficulties recently for some time. With urinary retention here requiring placement of Lane catheter. Start on Flomax. Discussed with him will keep Lane in with referral for follow-up with urology in clinic. Attestations Medical Necessity Statement*: Admission for optimization of management of adrenal insufficiency, severe hypothyroidism, thyroiditis, recurrent anemia. Coding Level of Care Code Acute Manager Biostatistics for Chg Fwd Exam Comprehensive Diagnoses Myxedema coma E03.5 Pancytopenia D61.818 Anemia D64.9 Anemia type: unspecified type S/P MVR (mitral valve repair) Z98.890 Systolic heart failure I50.20 Chronic renal disease N18.9 Atrial fibrillation I48.91 Supratherapeutic INR R79.1 Bradycardia R00.1 Renal cysts, acquired, bilateral N28.1 Thyroiditis E06.9
--- NOTE | 2019-07-07 15:57 | PC.PT ---
Patient INR greater than 3 which is a contraindication to activity via multiple and reputable sources concerning acute care management with physical therapy. Therefore, patient will be on hold for therapy until INR is less than 3.
[2019-07-07 16:42] LABS: Hemoglobin 7.3 g/dL (11.7-16.6)
[2019-07-07] MEDS: hydrocortisone 10 mg Tablet 25 MG PO (17:03)
[2019-07-07] MEDS: tamsulosin 0.4 mg Capsule PO (20:31)
[2019-07-08] VITALS (10 sets, daily range): BP systolic 110–123; BP diastolic 68–78; PULSE 54–63; RESP 16–18; TEMP 36.4–37.1; O2SAT 96
[2019-07-08] MEDS: HYDROcodone-acetaminophen 5-325 mg Tablet 2 TAB PO (01:54)
--- NOTE | 2019-07-08 02:50 | PC.NURSE ---
WHILE ENTERING BLOOD ADMINISTRATION INFO IN TO TAR, A RED FLAG POPPED UP & SAID THAT WE HAD EXCEEDED THE 20 MINUTES ALLOWED TO START THE TRANSFUSION. THE TIME THE BLOOD WAS ISSUED IN THE TAR WAS 0120, BUT THE TIME ISSUED ON THE BLOOD ADMINISTRATION SHEET THAT WAS ATTACHED TO THE BLOOD PRODUCT WAS 0128. I CALLED LUC IN LAB & SHE SAID WHEN FELICE BRADLEY CAME DOWN TO PICK THE BLOOD UP, THE PATIENT'S LABEL DID NOT HAVE THE O.M. NUMBER ON IT SO MIRNA CAME BACK TO THE FLOOR TO GET A LABEL WITH A LEGIBLE O.M. NUMBER. LUC SAID SHE LEFT THE SCREEN UP WHILE HE RAN TO GET THE LABEL & WHEN HE GOT BACK SHE FORGOT TO CHANGE THE ISSUE TIME IN THE TAR.
[2019-07-08 07:13] LABS: Hematocrit 24.7 % (42.0-52.0); Hemoglobin 8.2 g/dL (11.7-16.6); Lymphocytes # 0.3 10^3/uL (0.8-4.8); Lymphocytes % 7.4 %; Mean Corpuscular HGB Conc 33.2 g/dL (30.0-36.0); Mean Corpuscular Volume 90.5 fL (80-94); Mean Platelet Volume 9.5 fL (7.4-10.4); Monocytes # 0.2 10^3/uL (0.2-0.9); Monocytes % 6.6 %; Neutrophils % 85.4 %; Nucleated Red Blood Cells % 0 %; Platelet Count 71 10^3/cmm (130-400); Red Blood Count 2.73 10^6/uL (4.1-5.3); Red Cell Distribution Width 19.9 % (12.1-15.1); White Blood Count 3.5 10^3/uL (4.0-10.0)
[2019-07-08 07:26] LABS: INR 2.76 (0.8-1.2)
[2019-07-08 07:33] LABS: Alanine Aminotransferase 43 U/L (0-41); Albumin Level 3.2 g/dL (3.5-5.2); Alkaline Phosphatase 122 IU/L (40-130); Anion Gap 15.1 (5-19); Aspartate Amino Transferase 66 U/L (0-40); Blood Urea Nitrogen 67 mg/dL (8-23); Calcium 8.9 mg/dL (8.5-10.5); Carbon Dioxide 20 mmol/L (22-29); Chloride 104 mmol/L (98-107); Globulin 3.6 g/dL (1.3-4.6); Glucose 99 mg/dL (65-115); Osmolality Calculated 279 mOsm/kg (285-295); Potassium 4.1 mmol/L (3.5-5.1); Sodium 135 mmol/L (136-145); Total Protein 6.8 g/dL (6.6-8.7)
[2019-07-08] MEDS: levothyroxine 150 mcg Tablet 75 MCG PO (09:25)
[2019-07-08] MEDS: levoFLOXacin 500 mg Tablet PO (09:25)
[2019-07-08] MEDS: hydrocortisone 10 mg Tablet 35 MG PO (09:27)
[2019-07-08] MEDS: pantoprazole 40 mg SDV IVP (09:31)
--- NOTE | 2019-07-08 09:37 | PC.NURSE ---
F/C clamped off patient states understanding to call if feels the urge to urinate. Will monitor.
--- NOTE | 2019-07-08 13:33 | P.DS_ITS ---
Discharge Providers Date of Admission: 07/04/19 13:26 Date of Discharge: July 08, 2019 Attending Provider at Admission: Wilber Bojorquez MD Attending Provider at Discharge: Sd Posey Primary Care Provider: Gómez Perales Diagnoses at Discharge Discharge Diagnosis (1) Myxedema coma: Status: Acute (2) Pancytopenia: Status: Acute (3) Anemia: Status: Acute Qualifiers: Anemia type: unspecified type Qualified Code(s): D64.9 - Anemia, unspecified (4) S/P MVR (mitral valve repair): Status: Acute (5) Systolic heart failure: Status: Acute (6) Chronic renal disease: Status: Acute (7) Atrial fibrillation: Status: Acute (8) Supratherapeutic INR: Status: Acute (9) Bradycardia: Status: Acute (10) Renal cysts, acquired, bilateral: Status: Acute (11) Thyroiditis: Status: Acute (12) Urinary retention: Status: Acute (13) Cholelithiasis: Status: Acute Reason for Visit Reason for Visit: Reason For Visit: Low Hemoglobin Hospital Course Hospital Course: Pleasant 74-year-old gentleman with history of mechanical hea rt valve, atrial fibrillation, chronic kidney disease, pancytopenia, PUD, gout, congestive heart failure, PML, was admitted for assessment due to recurrent anemia, with recent plans for assessment by bone marrow biopsy, previously with unremarkable colonoscopy and gastritis on EGD in April 2019, on presentation with noted hemoglobin down to 5, but also pancytopenia with neutropenia, thrombocytopenia, temporarily requiring reverse isolation. On hospitalization found lethargic, with bradycardia, low blood pressure and temperature. Initially empirically started on Zosyn and vancomycin with history of PML and neutropenia. On assessment of thyroid function found to be severely hypothyroid, with suspicion of impending myxedema coma, with TSH 359 low free T4. Was started on IV levothyroxine, and stress dose steroid. Initially on dopamine for bradycardia. His symptoms improved, with improvement in bradycardia, temperature and mental status. His blood counts rebounded as well. He has received 3 units PRBC transfusion during this hospitalization, without signs of bleeding. Hemoccult was requested, however, could not be obtained as he has recurrent constipation, and sometimes goes 4-5 days without a bowel movement. This will be ordered on outpatient basis. Slow bleed cannot entirely be excluded, although suspicion is low. He is not iron deficient as well. His anemia appears to be likely multifactorial, with anemia of chronic disease due to severe hypothyroidism, low functional status, but also with low-grade hemolysis secondary to mechanical valve with mild elevation LDH, mildly low haptoglobin. Considering he has improved with thyroid replacement with think that this plays a major role, however, still cannot exclude that there may not be underlying chronic bone marrow process going on. Discussed with his signal worker we will follow-up with him in clinic. It is reasonable to consider treatment of his severe hypothyroidism, and revisit in case counts are persi stently low and he is still requiring bone marrow biopsy. His stress dose steroids have been tapered down. Blood pressure has been remaining in low 100 systolic. These will be tapered down over the next week, although please follow-up on his progress and increase dose or extend regimen as appropriate. There are findings consistent with thyroiditis on ultrasound imaging. No abscess or sign of bacterial infection is noted, with hypervascularity precluding biopsy at this time. If needed perhaps may be considered after the condition subsides somewhat. At this time he is continued on levothyroxine 75 mcg daily. Please follow-up thyroid studies and adjust dosing as appropriate. Due to some low suspicion of pneumonia with some atelectasis on imaging of lower lungs he was transitioned to Levaquin, and overall has undergone 5 days of therapy, but with his chronic kidney disease likely this will be 6-7 days, so at this time Levaquin is not continued, as it also has been noted to affect his INR while in the hospital, requiring lower doses of warfarin. INR is at 2.76 today. At this time he is resumed on his usual regimen starting with 2 mg today. Please follow-up INR within 2-3 days, and adjust warfarin dosing as appropriate. Additional conditions found during this hospitalization include cholelithiasis which is asymptomatic at this time. Also noted incidental renal cysts, with complex cyst on the left side for which please consider nonemergent follow-up by MRI. On 07/05 found to have urinary retention after urination. Reported recently has been having difficulties with flow, and so he is restarted on Flomax, and urinary catheter is placed and he was provided with a leg bag until he can be reassessed by urology in office. Underwent assessment by PT while in the [facility] [place] noted to have some concerns regarding balance, and stability with ambulation. Additional rehabilitation at nursing home facility was offered, however, due to pandemic concerns on discussion with family the preference was made for him to return home with his daughter at this time where he should continue to observe fall precautions and exercise program as recommended by PT. He is overall feeling much better, and is eager to return home. His condition and plan discussed with him but also with his daughter, and she is agreeable with the plan. Physical Exam Const: COMMON NORMALS: no apparent distress GENERAL APPEARANCE: disheveled OTHER: Today appears more energetic, alert. Slow responses HENMT: COMMON NORMALS: oropharynx normal Neck/C-Spine: COMMON NORMALS: no JVD Resp: COMMON NORMALS: normal respiratory effort and clear to auscultation bilaterally AUSCULTATION: clear to auscultation bilaterally Cardio: COMMON NORMALS: no JVD, regular rhythm, S1 normal heart sound, S2 normal heart sound and no murmurs RHYTHM: regular rhythm HEART SOUNDS: S1 normal and S2 normal GI: COMMON NORMALS: normal to inspection, nondistended, normoactive bowel sounds, soft to palpation and non-tender PALPATION: Yes soft Extremity: COMMON NORMALS: no joint enlargement and no pedal edema Neuro: COMMON NORMALS: moves all extremities Skin: COMMON NORMALS: no rashes or lesions noted GENERAL SKIN EXAM: no rashes or lesions noted Urinary Catheter Management^: Lane: Cath Placed During This Visit: yes Reason for Continuing Indwelling Catheter: Acute Urinary Retention or Obstruction Urinary Catheter Date of Insertion: 07/06/19 Urinary Catheter Time of Insertion: 14:18 Discharge Data Data Completed and Pending: Completed Studies During Hospitalization Category Date Time Status CT abdomen pelvis wo con [id number] Rout ine Cat Scan 07/04/19 16:35 Completed CV echo complete* [id number] Routine Ultrasound 07/05/19 14:23 Completed US renal BI* [id number] Routine Ultrasound 07/05/19 14:23 Completed US thyroid [id number] Routine Ultrasound 07/05/19 19:26 Completed Pending at discharge Category Date Time Status Blood Culture Sta t Lab 07/04/19 18:27 Results Hemoglobin Q24H Lab 07/08/19 16:00 Ordered Immunochemical Fe salome OCB Stat Lab 07/04/19 15:11 Uncollected Prothrombin Time INR AM LABS Lab 07/09/19 04:00 Ordered Vancomycin Trough Timed Lab 07/08/19 18:30 Ordered Labs from last 24 hours 07/08/19 07/08/19 07/08/19 07:02 07:02 07:02 WBC 3.5 L RBC 2.73 L Hgb 8.2 L Hct 24.7 L MCV 90.5 MCH 30.0 MCHC 33.2 RDW 19.9 H Plt Count 71 L MPV 9.5 Neut % (Auto) 85.4 Lymph % (Auto) 7.4 [place] % (Auto) 6.6 Eos % (Auto) 0.0 Baso % (Auto) 0.0 Neut # (Auto) 3.0 Lymph # (Auto) 0.3 L [place] # (Auto) 0.2 Eos # (Auto) 0.0 Baso # (Auto) 0.0 Nucleated RBC % (a uto) 0 Nucleated RBCs # 0.0 PT 30.20 H INR 2.76 H Sodium 135 L Potassium 4.1 Chloride 104 Carbon Dioxide 20 L Anion Gap 15.1 BUN 67 H Creatinine 3.2 H Glucose 99 Calculated Osmolal ity 279 L Calcium 8.9 Total Bilirubin 1.0 AST 66 H ALT 43 H Alkaline Phosphata se 122 Total Protein 6.8 Albumin 3.2 L Globulin 3.6 Blood Type Rho(D) Type Antibody Screen Crossmatch 07/07/19 07/07/19 17:25 16:05 WBC RBC Hgb 7.3 L Hct MCV MCH MCHC RDW Plt Count MPV Neut % (Auto) Lymph % (Auto) [place] % (Auto) Eos % (Auto) Baso % (Auto) Neut # (Auto) Lymph # (Auto) [place] # (Auto) Eos # (Auto) Baso # (Auto) Nucleated RBC % (a uto) Nucleated RBCs # PT INR Sodium Potassium Chloride Carbon Dioxide Anion Gap BUN Creatinine Glucose Calculated Osmolal ity Calcium Total Bilirubin AST ALT Alkaline Phosphata se Total Protein Albumin Globulin Blood Type A Positive Rho(D) Type Positive Antibody Screen Negative Crossmatch See Detail Vitals: Last Vital Signs Temp 98.5 F 07/08/19 11:45 Pulse 63 07/08/19 11:45 Resp 18 07/08/19 11:45 BP 116/71 07/08/19 11:45 Pulse Ox 96 07/08/19 11:45 Discharge Plan Discharge Patient Disposition: Home, Self-Care Condition: Stable Prescriptions: New hydrocortisone 10 mg Tablet See Rx Instructions .ROUTE .COMPLEX Qty: 18 RF: 0 tamsulosin 0.4 mg Capsule 0.4 mg PO BEDTIME Qty: 30 RF: 0 Continued allopurinol 100 mg Tablet 100 mg PO DAILY RF: 0 warfarin 4 mg Tablet See Rx Instructions .ROUTE .COMPLEX RF: 0 warfarin 2 mg Tablet See Rx Instructions .ROUTE .COMPLEX RF: 0 zolpidem 5 mg tablet 5 mg PO BEDTIME RF: 0 oxycodone See Rx Instructions .ROUTE .COMPLEX RF: 0 Changed Protonix 20 mg Tablet,Delayed Release (Dr/Ec) 40 mg PO BID Qty: 120 RF: 0 bumetanide 1 mg Tablet 1 mg PO BID PRN (Reason: Edema) Qty: 0 RF: 0 Discontinued amiodarone 100 mg Tablet 200 mg PO DAILY RF: 0 Discharge Orders: Discharge Order (Routine); Ordered 07/08/19 Ordered By: Sd Posey Other Ambulatory Orders: Immunochemical Fecal OCB (Routine) Timeframe: 1 Week Facility: [facility] - Location: Lab - Main Lab Ordered By: Sd Posey Referrals: Gómez Perales [Primary Care Provider] - 07/15/19 1:15 pm Eddie Jernigan MD [Physician] - 1 week (Urinary retention, Lane) Kacie Clinton MD [Staff Physician] - 07/22/19 12:30 pm Discharge Diet: Cardiac and Low Cholesterol Discharge Activity: As per PT/OT instructions Patient Instructions: Tamsulosin (By mouth), Hydrocortisone (By mouth), Cholelithiasis (DC), Urinary Retention in Men (GEN), Iron Rich Diet (DC), Lane Catheter Placement and Care (DC), Autoimmune Thyroid Disorders (DC), Anemia (DC) Activity Restrictions/Additional Instructions: Please arrange for INR check with your primary care provider in 2-3 days. At the same time please have your primary care provider check your hemoglobin level. Follow-up with Dr. Clinton in office with hemoglobin level and other blood count levels for consideration whether bone marrow biopsy still needed. Please have your primary care provider follow-up TSH level due to hypothyroidism. Please discuss with your primary care and urology provider follow-up nonemergent MRI for closer assessment of kidney complex cyst. Monitor blood pressure and heart rate 3 times daily and record values to bring to your appointment. Stress dose treatment with hydrocortisone will be tapered off over the next 6 days. If you notice blood pressure is becoming low while decreasing medication dosing, please contact your primary care provider without delay to increase the dose or extend the regimen as required. Please monitor for any bleeding. Fecal occult blood test is requested. Please maintain Lane catheter in place. You are started on Flomax and Lane catheter should stay in until he can be assessed by urology for safe removal to avoid recurrence of urinary retention. Please maintain strict fall precautions at home. Please continue exercise program as recommended by physical therapy. Avoid any NSAIDs. Discharge Attestations Time Spent in Discharge Care*: greater than 30 min Quality Metrics Clinical Quality Measures During this hospital stay, did patient experience: None Coding Level of Care Code Acute Epic Anesthesia Analyst for Chg Fwd Diagnoses Myxedema coma E03.5 Pancytopenia D61.818 Anemia D64.9 Anemia type: unspecified type S/P MVR (mitral valve repair) Z98.890 Systolic heart failure I50.20 Chronic renal disease N18.9 Atrial fibrillation I48.91 Supratherapeutic INR R79.1 Bradycardia R00.1 Renal cysts, acquired, bilateral N28.1 Thyroiditis E06.9 Urinary retention R33.9 Cholelithiasis K80.20
--- NOTE | 2019-07-08 14:25 | PC.NURSE ---
Patient requesting carballo to be removed education attempted with no success. Provider notified and stated that f/c needed to stay. Back in to explain to patient that the f/c would stay until at least the urology f/u appt. He then asked to speak to the charge nurse. Charge nurse into speak to patient.
--- NOTE | 2019-07-08 15:25 | PC.NURSE ---
Daughter Gretta notified via phone of patient discharge.
== END 2019-07-08 16:16 | disposition home or self-care (01) | DRG 80 ==
LOC: ER 14:03 → CSU 19:24 → ICU 19:24 → MEDSURG 19:24 → ICU 07-05 07:41 → MEDSURG 07-05 12:55
PROVIDERS: Admitting Provider Student in an Organized Health Care Education/Training Program; Emergency Provider Emergency Medicine; Family Provider Student in an Organized Health Care Education/Training Program; PCP Student in an Organized Health Care Education/Training Program; Visit Provider Internal Medicine
DX: E03.5 Myxedema coma (principal); J18.9 Pneumonia, unspecified organism; C92.40 Acute promyelocytic leukemia, not having achieved remission; D61.818 Other pancytopenia; I50.20 Unspecified systolic (congestive) heart failure; N18.4 Chronic kidney disease, stage 4 (severe); I13.0 Hypertensive heart and chronic kidney disease with heart failure and stage 1 through stage 4 chronic kidney disease, or unspecified chronic kidney disease; J98.11 Atelectasis; I48.91 Unspecified atrial fibrillation; R79.1 Abnormal coagulation profile; R00.1 Bradycardia, unspecified; D63.0 Anemia in neoplastic disease; E06.9 Thyroiditis, unspecified; K80.20 Calculus of gallbladder without cholecystitis without obstruction; Z95.2 Presence of prosthetic heart valve; Z87.11 Personal history of peptic ulcer disease; Z79.01 Long term (current) use of anticoagulants; Z85.71 Personal history of Hodgkin lymphoma; Z92.21 Personal history of antineoplastic chemotherapy; K21.9 Gastro-esophageal reflux disease without esophagitis; I27.20 Pulmonary hypertension, unspecified; Z95.810 Presence of automatic (implantable) cardiac defibrillator; Z87.891 Personal history of nicotine dependence
CPT/HCPCS: 12345; 36415; 36430; 51702; 51798; 74176; 76536; 76770; 80048; 80053; 80500; 81001; 82306; 82436; 82533; 82550; 82570; 82607; 82728; 82746; 83010; 83540; 83550; 83605; 83615; 83880; 84133; 84300; 84439; 84443; 84481; 85014; 85018; 85025; 85610; 86850; 86900; 86920; 87040; 87086; 87641; 93306; 94664; 96375; 97162; 99282; C9113; J1265; J1720; J2270; J2543; J2930; J3370; J3490; J7050; J8499; P9016; P9040

== ENCOUNTER 2019-07-22 12:25 | Outpatient (CLI) | payer MEDICARE, MEDICAID, SELFPAY ==
--- NOTE | 2019-07-22 13:19 | ONC FU_ITS ---
Dr. Clinton follow up note Patient: Juan J Charles Unit #: [id number]: 1945 Dicatated By: Kacie Clinton M.D.Date of Visit:Jul 22, 2019 Onc Med Follow-up/Prog Note History of Present Illness: Mr. Juan J Charles, is a 74-year-old gentleman acute promyelocytic leukemia diagnosed in 2009 status post chemotherapy, was in remission, being followed by primary care physician, as per patient his daughter patient was in his usual health until December 2018 when he was diagnosed with severe anemia, hemoglobin was around 7 g and he was given blood transfusion and that time nephrology took over his anemia management, since then patient has received multiple iron infusions and also being treated with and erythropoiesis stimulating agent also received multiple blood transfusions since then last one was in the mid May 2019 As per daughter, patient underwent EGD and colonoscopy in April 2019 which shows normal colonoscopy evaluation but peptic ulcer disease per EGD Patient has chronic systolic heart failure with pulmonary hypertension, is on Coumadin for history of MVR, Chronic renal disease due to hypertensive nephrosclerosis as well as chronic cardiorenal syndrome from chronic systolic heart failure Hypertension. Came for follow-up, denies any specific complaint except generalized weakness and fatigue which is a chronic problem otherwise no melena or hematochezia but darker stools because of oral iron. No nosebleed or gum bleed no petechiae or ecchymosis, no hemoptysis or hematemesis, no jaundice, no palpitation or shortness of breath at rest. Patient was scheduled for bone marrow evaluation but on the day of procedure, patient had elevated INR, as patient is on anticoagulation for mitral valve replacement and also found to have severe anemia, procedure was abandoned, case was discussed with Dr. Isbell, his building admin in [place] and he recommended to continue anticoagulation and transfuse packed RBCs as needed. And may consider GI evaluation if there is evidence of GI bleeding. And if bone marrow procedures needed because of anticoagulation and thrombocytopenia his high risk for hematoma or bleeding then it was recommended hold Coumadin prior to the procedure but cover with Lovenox and then restart Coumadin after the procedure. Medications: Allopurinol 1 Tablet (of 100 mg) Oral daily, Biotin 1 Tablet (of 1000 mcg) Oral daily, Bumex 1 Tablet (of 1 mg) Oral q 2 days, Ferrous Sulfate ER 1 Tablet (of 140 (45 fe) mg) Tablet, controlled release Oral daily, Folic Acid 1 Tablet (of 1 mg) Oral daily, Protonix 1 Tablet (of 20 mg) Tablet, enteric coated Oral b.i.d. Allergies: Codeine Sulfate, Gabapentin, levETIRAcetam, and predniSONE. Review of Systems: Constitutional - Appetite is fair and weight has decreased. No fever, chills, hot flashes, or night sweats. Energy level is poor, ENMT - Positive for sinus congestion/drainage. No mouth sores. No sore throat or difficulty swallowing, Hematologic/Lymphatic - Positive for easy bruisng, frequent nosebleeds, Respiratory - Positive for shortness of breath. No cough. No pleuritic pain or hemoptysis, Cardiovascular - No angina pain. Occasional palpitations, Gastrointestinal - No nausea or vomiting. No heartburn or acid reflux. Flucuates between diarrhea and constipation. No blood in the stool or black stools, Genitourinary (M) - No dysuria or hematuria. No urinary frequency. No urgency or incontinence, Musculoskeletal - Positive for joint pain, Neurologic - No headache or dizziness. No numbness/paresthesias or other focal neurologic symptoms, Psychiatric - No anxiety or depression. Positive for insomnia. Vital Signs: Performed on Jul 22, 2019 12:38 Height - 72.00 in Weight - 168.4 lbs (LOW) BSA - 1.98 sq.m BMI - 22.84 Temperature - 97.5 F (LOW) Pulse - 66 /min Respiration - 18 /min BP - 100/66 mm(hg) O2 Sat - 99 % Pain - 8 Performance Status: 2 - Ambulatory/capable of all self-care, unable to perform any work activities. Up and about more than 50% of waking hours. (ECOG) Physical Examination: ENMT - no mouth sores, Respiratory - Lungs are clear , denies any wheezing, Cardiovascular - denies any tachycardia at rest, Abdomen - denies any abdominal distention or pain, Extremities - 1+ edema bilaterally. Lab/Imaging: Test performed on Jun 10, 2019 13:24 WBC 2.0 10 3/uL RBC 1.75 10 6/uL HGB 5.9 g/dL HCT 17.2 % MCV 98.3 fL MCH 33.7 pg MCHC 34.3 g/dL RDW 16.2 % Platelet Count 65 10 3/cmm MPV 10.6 fL Neutrophils 1.4 10 3/uL Lymphocytes 0.3 10 3/uL Monocytes 0.2 10 3/uL Eosinophils 0.1 10 3/uL Basophils 0.0 10 3/uL Neutrophil % 70.4 % Lymphocyte % 12.8 % Monocyte % 9.4 % Eosinophil % 5.9 % Basophils % 1.0 % Impression: Pancytopenia etiology unclear but could be due to APL relapse or considering his age, myelodysplasia or secondary AML due to chemotherapy in the past or aplastic anemia Status post multiple blood transfusions/iron infusions/erythropoiesis stimulating agent per nephrology History of APL diagnosed in 2009 status post chemotherapy, as per family patient achieved complete remission. History of MVR, on Coumadin History of chronic systolic heart failure History of chronic renal disease Plan: Discussed with patient regarding options and planning, clinically, patient is doing reasonably well but etiology of pancytopenia still not clear but concern is about recurrence of acute promyelocytic leukemia or second hematological malignancy or considering his age or treatment related MDS cannot be ruled out. But patient is reluctant for the bone marrow as he said if he has leukemia then he has no intention to go for treatment, rather prefer comfort measures. On the other hand if this myelodysplasia then he may consider some less toxic treatment if available. The meantime we will consider whole blood flow cytometry, and repeat his CBC today. And then patient return to clinic in 2 weeks with CBC or may consider telemedicine evaluation. In the meantime patient will discuss with his family regarding how far he wants to pursue workup regarding pancytopenia. Signed By: Kacie Clinton M.D. <<Signature on File>>
[2019-07-22 13:37] LABS: Basophils % 0.6 %; Eosinophils # 0.1 10^3/uL (0.0-0.8); Eosinophils % 4.6 %; Hematocrit 23.5 % (42.0-52.0); Hemoglobin 7.6 g/dL (11.7-16.6); Lymphocytes # 0.3 10^3/uL (0.8-4.8); Mean Corpuscular HGB Conc 32.3 g/dL (30.0-36.0); Mean Corpuscular Hemoglobin 31.5 pg (28.0-34.0); Mean Corpuscular Volume 97.5 fL (80-94); Mean Platelet Volume 8.8 fL (7.4-10.4); Monocytes # 0.2 10^3/uL (0.2-0.9); Monocytes % 9.1 %; Neutrophils # 1.2 10^3/uL (1.8-7.7); Neutrophils % 69.7 %; Nucleated Red Blood Cells % 0 %; Platelet Count 52 10^3/cmm (130-400); Red Blood Count 2.41 10^6/uL (4.1-5.3); Red Cell Distribution Width 21.9 % (12.1-15.1); White Blood Count 1.8 10^3/uL (4.0-10.0)
[2019-08-08 10:41] LABS: Miscellaneous Test See Scanned Lab Rpt
== END 2019-07-22 12:26 | disposition home or self-care (01) ==
LOC: ONCMED 12:25
PROVIDERS: Family Provider Student in an Organized Health Care Education/Training Program; PCP Student in an Organized Health Care Education/Training Program; Visit Provider Internal Medicine Hematology & Oncology
DX: D61.818 Other pancytopenia (principal); C92.41 Acute promyelocytic leukemia, in remission; I13.0 Hypertensive heart and chronic kidney disease with heart failure and stage 1 through stage 4 chronic kidney disease, or unspecified chronic kidney disease; N18.9 Chronic kidney disease, unspecified; I50.22 Chronic systolic (congestive) heart failure; Z95.2 Presence of prosthetic heart valve; Z79.01 Long term (current) use of anticoagulants
CPT/HCPCS: 36415; 85025; 88184; 88185; 99214